=== PATIENT | female | born 1995 | race Caucasian/White ===

== ENCOUNTER 2018-11-10 09:37 | Outpatient (CLI) | payer OTHER | END 2018-11-10 09:47 | disposition home or self-care (01) | LOC: RAD 09:37 | DX: R07.89 Other chest pain (principal) ==

== ENCOUNTER 2018-11-16 06:35 | Day surgery (SDC) | payer OTHER | END 2018-11-16 16:20 | disposition home or self-care (01) | LOC: CIR.AMB 06:35 | DX: Z30.2 Encounter for sterilization (principal) ==

== ENCOUNTER 2021-12-09 09:13 | Outpatient (CLI) | payer OTHER | END 2021-12-09 09:14 | disposition home or self-care (01) | LOC: LAB 09:13 | PROVIDERS: ATTEND Obstetrics & Gynecology | DX: Z20.818 Contact with and (suspected) exposure to other bacterial communicable diseases (principal); Z20.828 Contact with and (suspected) exposure to other viral communicable diseases ==